=== PATIENT | male | born 1945 | race Caucasian/White ===

== ENCOUNTER 2019-10-18 07:55 | Day surgery (SDC) | payer MEDICARE ==
[~2019-10-18] VITALS: Ht 167.6 cm; Wt 68.2 kg
[2019-10-18] VITALS (13 sets, daily range): BP systolic 126–146; BP diastolic 67–85
[~2019-10-18 07:55] MED LIST: ALBU18HF2 INH
[2019-10-18] MEDS ORDERED: CARV-50 PO (08:21)
[2019-10-18] MEDS ORDERED: IRON150C8 PO (08:22)
[2019-10-18] MEDS ORDERED: MULT-933 PO (08:22)
[2019-10-18] MEDS ORDERED: ATOR40TA PO (09:07)
[2019-10-18] MEDS ORDERED: TRAM50TA2 PO (09:08)
[2019-10-18] MEDS ORDERED: OMEP40CA13 PO (09:09)
[2019-10-18 09:39] LABS: BASOPHILS # (AUTO) 0.1 X10'3 (0-0.2); EOSINOPHILS # (AUTO) 0.1 X10'3 (0-0.9); LYMPHOCYTES # (AUTO) 1.5 X10'3 (1.1-4.8); LYMPHOCYTES % (AUTO) 21.5 % (21-51); MEAN CORPUSCULAR HEMOGLOBIN 29.9 PG (27.0-31.0); MEAN CORPUSCULAR HGB CONC 34.4 g/dL (33.0-36.5); MEAN PLATELET VOLUME 10.7 FL (7.4-10.4); MONOCYTES # (AUTO) 0.8 X10'3 (0-0.9); MONOCYTES % (AUTO) 11.6 % (2-12); NEUTROPHILS # (AUTO) 4.6 X10'3 (1.8-7.7); NEUTROPHILS % (AUTO) 64.9 % (42-75); PRE OP HEMATOCRIT 44.7 % (42.0-52.0); PRE OP HEMOGLOBIN 15.4 g/dL (14.0-17.9); PRE OP PLATELET COUNT 146 X10'3 (140-440); RED BLOOD COUNT 5.14 X10'6 (4.70-6.10); RED CELL DISTRIBUTION WIDTH 14.5 % (11.5-14.5)
[2019-10-18 10:04] LABS: ALBUMIN 3.3 G/DL (3.4-5.0); ALBUMIN/GLOBULIN RATIO 0.9 (1.1-1.5); ALKALINE PHOSPHATASE 106 IU/L (46-116); BLOOD UREA NITROGEN 13 MG/DL (7-18); BUN/CREATININE RATIO 13.5 (5.4-32.0); CALCIUM 8.4 MG/DL (8.5-10.1); CHLORIDE 108 MMOL/L (99-107); CREATININE 0.96 MG/DL (0.60-1.10); PRE OP ALT 22 U/L (30-65); PRE OP ANION GAP 5 (8-16); PRE OP AST 15 U/L (10-37); PRE OP BILIRUB, TOTAL 0.5 MG/DL (0.0-1.0); PRE OP GLUCOSE 89 MG/DL (70-104); PRE OP POTASSIUM 4.8 MMOL/L (3.4-5.1); PRE OP SODIUM 142 MMOL/L (135-145); TOTAL CARBON DIOXIDE 28.6 MMOL/L (24-32); TOTAL PROTEIN 6.9 G/DL (6.4-8.2); eGFR 76 ML/MIN
[2019-10-18 10:19] LABS: LARGE PLATELETS FEW; PLATELET ESTIMATE NORMAL
[2019-10-18] MEDS ORDERED: LIDOcaine 1%/PF 5ML 10 MG/ML VIAL SQ ONE (11:20)
[2019-10-18] MEDS ORDERED: fentaNYL/PF 50MCG/1 ML 2ML syringe IV PRN (11:20)
[2019-10-18] MEDS ORDERED: midazolam 2 mg/2 ml injection IV PRN (11:20)
[2019-10-18] MEDS ORDERED: fentaNYL/PF 50MCG/1 ML 2ML syringe ONE (11:49)
[2019-10-18] MEDS ORDERED: midazolam 2 mg/2 ml injection ONE (11:49)
[2019-10-18] MEDS ORDERED: HYDROcodone/acetaminophen 5mg/325mg tablet PO PRN (12:40)
--- NOTE | 2019-10-18 12:45 | NUR ---
Rec patient back from procedure via gurney. Awake and alert, vss. Asking for lunch and given sandwich and drink. Denies pain, cp, or sob. cxr due at 1330.
== END 2019-10-18 14:30 | disposition home or self-care (01) ==
LOC: SSTAY O 07:55
PROVIDERS: ATTEND Radiology Diagnostic Radiology
DX: R91.8 Other nonspecific abnormal finding of lung field (principal); J98.4 Other disorders of lung; N40.0 Benign prostatic hyperplasia without lower urinary tract symptoms; E78.5 Hyperlipidemia, unspecified; K21.9 Gastro-esophageal reflux disease without esophagitis; Z79.01 Long term (current) use of anticoagulants; Z90.49 Acquired absence of other specified parts of digestive tract; Z98.41 Cataract extraction status, right eye; Z98.42 Cataract extraction status, left eye; Z98.890 Other specified postprocedural states; Z79.899 Other long term (current) drug therapy; Z85.118 Personal history of other malignant neoplasm of bronchus and lung
CPT/HCPCS: 32405; 36415; 71045; 77012; 80053; 85025; 85610; 99152; 99153; J2250; J3010; J7040

== ENCOUNTER 2019-12-21 14:50 | Outpatient (CLI) | payer MEDICARE ==
[~2019-12-21 14:50] MED LIST changes: -ALBU18HF2 INH; +ATOR40TA PO; +OMEP40CA13 PO; +TRAM50TA2 PO; +diatr meglu/diatrizoate 30ml oral sol.-(3 dose) bottle ONE
== END 2019-12-21 23:59 | disposition home or self-care (01) ==
LOC: 64 CT 14:50
PROVIDERS: ATTEND Surgery
DX: K40.90 Unilateral inguinal hernia, without obstruction or gangrene, not specified as recurrent (principal); R91.1 Solitary pulmonary nodule
CPT/HCPCS: 74176; Q9963

== ENCOUNTER 2019-12-28 07:45 | Day surgery (SDC) | payer MEDICARE ==
[2019-12-28] VITALS (18 sets, daily range): BP systolic 105–172; BP diastolic 56–81
[~2019-12-28] VITALS: Ht 167.6 cm; Wt 71.0 kg
[~2019-12-28 07:45] MED LIST changes: -diatr meglu/diatrizoate 30ml oral sol.-(3 dose) bottle ONE
[2019-12-28] MEDS ORDERED: normal saline 1000ml 1,000 ML IV PRN (08:30)
[2019-12-28 09:13] LABS: BASOPHILS # (AUTO) 0.1 X10'3 (0-0.2); BASOPHILS % (AUTO) 1.6 % (0-1); EOSINOPHILS # (AUTO) 0.1 X10'3 (0-0.9); HEMATOCRIT 53.3 % (42.0-52.0); LYMPHOCYTES # (AUTO) 1.5 X10'3 (1.1-4.8); MEAN CORPUSCULAR HGB CONC 33.9 g/dL (33.0-36.5); MEAN CORPUSCULAR VOLUME 85.7 FL (78-98); MEAN PLATELET VOLUME 10.8 FL (7.4-10.4); MONOCYTES # (AUTO) 0.8 X10'3 (0-0.9); MONOCYTES % (AUTO) 9.4 % (2-12); PLATELET COUNT 192 X10'3 (140-440); RED BLOOD COUNT 6.22 X10'6 (4.70-6.10); RED CELL DISTRIBUTION WIDTH 14.8 % (11.5-14.5); WHITE BLOOD COUNT 8.5 X10'3 (4.5-11.0)
[2019-12-28 09:21] LABS: HEMOGLOBIN 18.1 g/dl (14.0-17.9)
[2019-12-28] MEDS ORDERED: FINA5TAB11 PO (09:42)
[2019-12-28 09:55] LABS: LARGE PLATELETS FEW; PLATELET ESTIMATE NORMAL
[2019-12-28] MEDS ORDERED: midazolam 2 mg/2 ml injection ONE (11:22)
[2019-12-28] MEDS ORDERED: fentaNYL/PF 50MCG/1 ML 2ML syringe ONE (11:23)
[2019-12-28] MEDS ORDERED: gelatin sponge, absorbable (Gelfoam 12-7MM) sponge TP ONE (11:23)
[2019-12-28] MEDS ORDERED: HYDROcodone/acetaminophen 5mg/325mg tablet PO PRN (12:45)
== END 2019-12-28 15:25 | disposition home or self-care (01) ==
LOC: SSTAY O 07:45
PROVIDERS: ATTEND Radiology Vascular & Interventional Radiology
DX: C34.92 Malignant neoplasm of unspecified part of left bronchus or lung (principal); R07.9 Chest pain, unspecified; R05 Cough; E78.5 Hyperlipidemia, unspecified
CPT/HCPCS: 32405; 36415; 71045; 77012; 85025; 85610; J2250; J3010; J7030; 99152; 99153

== ENCOUNTER 2020-03-16 08:22 | Emergency (ER) | payer MEDICARE ==
[~2020-03-16] VITALS: Ht 167.6 cm; Wt 73.0 kg
[~2020-03-16 08:22] MED LIST changes: +FINA5TAB11 PO
[2020-03-16] MEDS ORDERED: LIDOcaine 1% 30ml preserv. free vial SQ STA (09:22)
--- NOTE | 2020-03-16 09:45 | NUR ---
patient on bed awake,registration at bedside.
[2020-03-16] MEDS ORDERED: SULF1TAB49 PO (10:04)
[2020-03-16] MEDS ORDERED: sulfamethoxazole/trimethoprim DS (800/160mg) tablet PO ONE (10:05)
[2020-03-16 10:35] VITALS: BP 147/66
[2020-03-17] MEDS ORDERED: CLIN150C99 PO (10:44)
== END 2020-03-16 10:35 | disposition home or self-care (01) ==
LOC: ER 08:22
DX: L02.31 Cutaneous abscess of buttock (principal); E78.00 Pure hypercholesterolemia, unspecified; C34.90 Malignant neoplasm of unspecified part of unspecified bronchus or lung; Z98.890 Other specified postprocedural states; Z79.2 Long term (current) use of antibiotics; Z79.899 Other long term (current) drug therapy
CPT/HCPCS: 10060; 99284

== ENCOUNTER 2020-03-17 08:40 | Emergency (ER) | payer MEDICARE ==
[~2020-03-17] VITALS: Ht 167.6 cm; Wt 68.6 kg
[~2020-03-17 08:40] MED LIST changes: +SULF1TAB49 PO
[2020-03-17 08:49] VITALS: BP 117/73
[2020-03-17] MEDS ORDERED: CLIN150C99 PO (10:44)
== END 2020-03-17 10:50 | disposition home or self-care (01) ==
LOC: ER 08:40
DX: K61.1 Rectal abscess (principal); Z48.00 Encounter for change or removal of nonsurgical wound dressing; E78.00 Pure hypercholesterolemia, unspecified; Z85.118 Personal history of other malignant neoplasm of bronchus and lung; Z90.49 Acquired absence of other specified parts of digestive tract; Z98.890 Other specified postprocedural states; Z79.2 Long term (current) use of antibiotics; Z79.899 Other long term (current) drug therapy
CPT/HCPCS: 10060; 46040; 99283; 99284